=== PATIENT | female | born 1985 | race Hispanic/Latino ===

== ENCOUNTER → 2020-04-11 | Outpatient (CLI) | payer BC ==
[~2020-04-11] MED LIST: IOHEXOL-350 50ML VIAL IV ONE
== END | disposition home or self-care (01) ==
LOC: RAH 12:01
PROVIDERS: ATTEND Neurological Surgery
DX: R91.1 Solitary pulmonary nodule (principal); K76.89 Other specified diseases of liver
CPT/HCPCS: 71260; Q9967